=== PATIENT | male | born 1945 | race Caucasian/White ===

== ENCOUNTER 2022-06-01 08:00 | Inpatient (IN) | payer MEDICARE ==
[2022-06-01] VITALS (74 sets, daily range): BP systolic 90–195; BP diastolic 61–142
--- NOTE | 2022-06-01 08:00 | NUR ---
PT ARRIVE TO ER VIA EMS. PT PLACE DIN RM 11. PROVIDER AT BEDSIDE.
--- NOTE | 2022-06-01 08:42 | NUR ---
PT TO RM 11. DR. CRENSHAW SPEAKING TO AT THIS TIME.
[2022-06-01 08:56] LABS: ALBUMIN 4.4 g/dL (3.2-5.0); ALKALINE PHOSPHATASE 127 u/l (38-126); ANION GAP 16 (6-22 (CALC)); BUN 19 mg/dL (8-23); BUN/CREATININE RATIO 25 (12-20 (CALC)); CARBON DIOXIDE 26 mmol/l (22-30); CHLORIDE 106 mmol/l (95-108); CREATININE 0.7 mg/dL (0.7-1.3); GFR FOR AFR.AMER. > 60 ML/MIN (>=60 (CALC)); GFR OTHER RACES > 60 ML/MIN (>=60 (CALC)); POTASSIUM 4.1 mmol/l (3.5-5.1); SGOT/AST 70 u/l (19-48); SODIUM 143 mmol/l (137-146); TOTAL PROTEIN 7.4 g/dL (6.3-8.2)
[2022-06-01 09:06] LABS: BASO% 0.6 % (0-3); EOS% 1.5 % (0-8); HEMATOCRIT 47.6 % (39.0-50.0); HEMOGLOBIN 15.2 g/dl (14.0-18.0); IMMATURE GRANULOCYTES 0.6 % (0.0-5.0); LYMPH% 10.1 % (15-41); MEAN CELL VOLUME 93.7 fL CALC (80.0-100.0); MEAN CORPUSCULAR HGB 29.9 pG CALC (26.0-32.0); MEAN CORPUSCULAR HGB CONC 31.9 g/dL CAL (32.0-36.0); NEUT# 7.44 thou/uL (1.82-7.42); NEUT% 82.2 % (42-76); RED BLOOD COUNT 5.08 mill/uL (4.70-6.10); RED CELL DISTRI WIDTH 13.2 % (11.5-15.5)
[2022-06-01 09:13] LABS: INTERNATIONAL NORMALIZED RATIO 1.1 RATIO (0.7-1.3); PROTHROMBIN TIME 10.9 SECONDS (9.0-12.5)
[2022-06-01 09:26] LABS: URINE BILIRUBIN - DIPSTICK NEGATIVE (NEGATIVE); URINE BLOOD DIPSTICK MODERATE (NEGATIVE); URINE COLOR YELLOW; URINE GLUCOSE - DIPSTICK >=1000 mg/dL (NEGATIVE); URINE KETONE NEGATIVE (NEGATIVE); URINE LEUK ESTERASE NEGATIVE (NEGATIVE); URINE PH 7.5 (4.5-8.0); URINE PROTEIN - DIPSTICK 100 mg/dL (NEG-TRACE); URINE UROBILINOGEN - DIPSTICK 0.2 E.U./dL (0.2)
[2022-06-01 09:32] LABS: URINE NITRITE - DIPSTICK NEGATIVE (Negative)
[2022-06-01 10:03] LABS: URINE SPERM FEW hpf (NONE-RARE)
--- NOTE | 2022-06-01 10:42 | NUR ---
DR CRENSHAW CURRENTLY AT PATIENT'S BEDSIDE WITH ROMERO AND SEVERAL OF THEIR FAMIILY MEMBERS TO FURTHER DISCUSSED CURRENTLY PLACE OF CARE AND FAMILY'S WISHES.
--- NOTE | 2022-06-01 11:29 | NUR ---
REPORT CALLED TO ISIDRA GONZALEZ IN ICU.
--- NOTE | 2022-06-01 12:13 | NUR ---
PATIENT MOVED TO ICU BED 1 AT THIS TIME.
--- NOTE | 2022-06-01 12:14 | NUR ---
BEDSIDE REPORT RECEIVED BY MILY LAW. PT ON DIPROVAN, BLOOD PRESSURE 120/71 DISCONTINUED LEVOPHED. VENT IN PLACE
--- NOTE | 2022-06-01 12:31 | NUR ---
[facility] CALLED, REFERAL #[id number]
--- NOTE | 2022-06-01 13:24 | NUR ---
AND FRIENDS ARRIVED. STATES THEY WERE GETTING UP AROUND 6 THIS AM AND PT COULD NOT GET UP FROM BED, STATED HE WAS TOO WEAK, HIS STATES HE STARTED SLIDING DOWN TO GROUND AND SHE HELPED HIM, AND THEN HE STARTED SLURRING WORDS AND HIS LEFT EYE WOULD NOT OPEN. SHE AT THAT POINT CALLED EMS, STATES HE HAD A TIA LAST OCTOBER BUT NEVER DETERMINED WHAT CAUSED PROBLEMS, UPON ARRIVAL TO ICU PT IS INTUBATED WITH RIJ TRIPLE LUMEN AND A 20 IN LEFT WRIST. PTS BLOOD PRESSURE WAS STABLIZED SO REMOVED THE LEVOPHED
--- NOTE | 2022-06-01 13:58 | NUR ---
SOME OF FAMILY REMAINS AT BEDSIDE WITH PTS/ FRIENDS. IS WAITING FOR THE REST OF KIDS AND FAMILY TO FLY IN BEFORE PULLING THE VENT OFF. DNR IS ON THE CHART FOR PALLITIVE CARE. DR. CHAND WANTS TO TRY AND KEEP THE PTS BLOOD PRESSURE TO BELOW 120/80, TO TRY AND KEEP PT ALIVE FOR REST OF FAMILY TO HAVE TIME TO GET HERE.
--- NOTE | 2022-06-01 14:08 | NUR ---
PT REMAINS ON DIPROVAN, NO MOVEMENT. PT IS SEDATED AND HAVE NO NEED AT THIS TIME FOR LEVOPHED. BLOOD PRESSURE IS 105/69 RESPIRATIONS NORMAL, HEART RATE 72 AND EVEN. WILL CONTINUE TO WATCH FOR WIDENING PULSEPRESURES AND BRADYCARDIA. REGULAR BREATHING PATTERN AT THIS TIME. PTS HEAD OF BED IS AT 30 DEGREES, HAVE ORDER FOR KEPPRA ON CHART PER ORDER SET.
--- NOTE | 2022-06-01 14:11 | NUR ---
UNABLE TO OBTAIN [facility] DUE TO PTS. SEDATED AND ON VENTILATOR. WILL CONTINUE TO MONITER AND ASSESS PT PER PROTOCOL
--- NOTE | 2022-06-01 15:53 | NUR ---
PT REMAINS SEDATED, NO MOVEMENT. VITAL SIGNS REMAIN THE SAME.
--- NOTE | 2022-06-01 16:15 | NUR ---
SEDATED AND NOT MOVING, NO CHANGE IN VITAL SIGNS
--- NOTE | 2022-06-01 18:19 | NUR ---
EMPTIED 900 CC OF URINE OUT OF BLAKE BAG A LIGHT YELLOW COLORL.
--- NOTE | 2022-06-01 19:15 | NUR ---
remains sedated. vent cont assisted by pt. no response to verbal or painful stimuli. director of cardiac rehabilitation shows sinus rhythm. #20 lt wrist saline lock in place. rij tlc in place. ivf infusing well. gonzalez cath in place. urine clear yellow. multi family members @ bedside. all questions answered. fall precautions cont.
--- NOTE | 2022-06-01 20:30 | NUR ---
family asking questions about organ donation. family referred to planting supervisor eliza washington.
--- NOTE | 2022-06-01 22:00 | NUR ---
vent cont assisted by pt. residential monitor shows sinus rhythm. son @ bedside.
[2022-06-02] VITALS (13 sets, daily range): BP systolic 83–190; BP diastolic 44–121
--- NOTE | 2022-06-02 00:01 | NUR ---
vent cont assisted by pt. ivf cont. urine cloudy yellow. son @ bedside.
--- NOTE | 2022-06-02 01:45 | NUR ---
pt feels hot. temp 101.9 ax. tylenol 650mg supp inserted. blanket removed. cool compresses applied.
--- NOTE | 2022-06-02 04:00 | NUR ---
dr julian updated on pts condition per eliza washington. orders rec'd.
--- NOTE | 2022-06-02 04:15 | NUR ---
rt here. abgs drawn.
--- NOTE | 2022-06-02 05:00 | NUR ---
xray here. pcxr obtained.
[2022-06-02 06:32] LABS: BASO% 0.2 % (0-3); EOS% 0.1 % (0-8); HEMATOCRIT 50.2 % (39.0-50.0); HEMOGLOBIN 15.6 g/dl (14.0-18.0); IMMATURE GRANULOCYTES 0.1 % (0.0-5.0); LYMPH% 8.5 % (15-41); MEAN CORPUSCULAR HGB 29.8 pG CALC (26.0-32.0); MEAN CORPUSCULAR HGB CONC 31.1 g/dL CAL (32.0-36.0); MONO% 6.9 % (2-13); NEUT# 13.04 thou/uL (1.82-7.42); NEUT% 84.2 % (42-76); RED BLOOD COUNT 5.23 mill/uL (4.70-6.10); RED CELL DISTRI WIDTH 13.5 % (11.5-15.5)
--- NOTE | 2022-06-02 06:45 | NUR ---
son awakened. updated on pts condition. encouraged to call family members.
--- NOTE | 2022-06-02 07:00 | NUR ---
dr phelan updated on pts condition per eliza washington
--- NOTE | 2022-06-02 08:00 | NUR ---
Patient in bed. Son at bedside. Assessment completed. BP soft. Ventilator settings are as follows: TV 450, FiO2 50, Rate 20 and PEEP 5. Patient appears comfortable. Dr. Mcclelland requested patient be weaned off of prop as patient has no reflex/ nerve response, no gag reflex and pupils remain fixed. Patient's son advised to contact family members. Bed in low position. Will continue to monitor.
--- NOTE | 2022-06-02 08:27 | NUR ---
Dr. Stas kennedy at bedside. Patient weaned off of prop by Lester Durand MD advised. Patient's family agreed to extubate patient.
--- NOTE | 2022-06-02 08:52 | NUR ---
call placed to [facility] in regards to follow up prior to terminal extubation; ref # [id number]; will await return call from coordinator
--- NOTE | 2022-06-02 08:58 | NUR ---
call received from [facility]; pt not medically suitable; family has been informed per Tavia; primary nurse informed of such
--- NOTE | 2022-06-02 09:08 | NUR ---
PT extubated patient. Patient currently on 2L via NC.
--- NOTE | 2022-06-02 09:36 | NUR ---
Clinical confirmed by this write and Laurel Shaikh RN. Family present at bedside. Advised patient to be picked up by Navdeep Curtis.
--- NOTE | 2022-06-02 10:10 | NUR ---
[facility] advised of patient's expiration time. Patient not an organ donating candidate. To be advised of eye donation status.
--- NOTE | 2022-06-02 10:33 | NUR ---
Per eye bank, patient is outside of donation age limit. Released from bank to home by Chema Kennedy, [id number].
--- NOTE | 2022-06-02 10:36 | NUR ---
[id number] contacted to discuss patient expiration status and pickup time. Advised patient is to be picked up between 1130/1200 on 06/02.
--- NOTE | 2022-06-02 12:13 | NUR ---
Patient left unit via stretcher accompained by Renny calvert and [facility] staff.
== END 2022-06-02 09:36 | disposition expired | DRG 64 ==
LOC: ED 08:00 → ED-I 10:04 → ED 10:50 → ICU 10:51
PROVIDERS: Family Medicine; ADMIT Internal Medicine; ATTEND Internal Medicine
PROC: 0T9B70Z Drainage of Bladder with Drainage Device, Via Natural or Artificial Opening (ICD-10-PCS; principal; 2022-06-01)
PROC: 02HV33Z Insertion of Infusion Device into Superior Vena Cava, Percutaneous Approach (ICD-10-PCS; 2022-06-01)
PROC: 0BH17EZ Insertion of Endotracheal Airway into Trachea, Via Natural or Artificial Opening (ICD-10-PCS; 2022-06-01)
PROC: 5A1935Z Respiratory Ventilation, Less than 24 Consecutive Hours (ICD-10-PCS; 2022-06-01)
DX: I61.2 Nontraumatic intracerebral hemorrhage in hemisphere, unspecified (principal); G93.6 Cerebral edema; I60.11 Nontraumatic subarachnoid hemorrhage from right middle cerebral artery; R47.81 Slurred speech; G83.24 Monoplegia of upper limb affecting left nondominant side; I10 Essential (primary) hypertension; I25.10 Atherosclerotic heart disease of native coronary artery without angina pectoris; K21.9 Gastro-esophageal reflux disease without esophagitis; E66.9 Obesity, unspecified; Z79.02 Long term (current) use of antithrombotics/antiplatelets; Z51.5 Encounter for palliative care; Z66 Do not resuscitate; Z95.5 Presence of coronary angioplasty implant and graft; Z86.73 Personal history of transient ischemic attack (TIA), and cerebral infarction without residual deficits
CPT/HCPCS: J0131; J1953; J2150